=== PATIENT | female | born 1950 | race Two or more races ===

== ENCOUNTER 2016-06-24 21:32 | Emergency (ER) | payer OTHER, MEDICARE ==
[~2016-06-24] VITALS: Ht 160 cm; Wt 104.3 kg
[~2016-06-24 21:32] MED LIST: ATEN25TA; PIOG15TA3; SITA25TA; VALS40TA4
--- NOTE | 2016-06-24 22:13 | NUR ---
DR. MCNEIL IS AT THE BEDSIDE.
[2016-06-24] MEDS ORDERED: ONDANSETRON 4 MG TAB.RAPDIS ONE (22:22)
[2016-06-24] MEDS ORDERED: HYDROCODONE/APAP 5/325MG 1 EACH TABLET ONE (22:22)
[2016-06-24] MEDS: HYDROCODONE/APAP 5/325MG 1 EACH TABLET PO ONE (22:27)
[2016-06-24] MEDS: ONDANSETRON 4 MG TAB.RAPDIS SL ONE (22:27)
--- NOTE | 2016-06-24 22:47 | NUR ---
XRAY AT THE BEDSIDE
--- NOTE | 2016-06-24 23:51 | NUR ---
CALLED RADIOLOGY RE: READING THE XRAYS.
--- NOTE | 2016-06-25 00:15 | NUR ---
PT APPEARS TO BE RESTING COMFORTABLY. PT WAITING FOR A BOOT.
--- NOTE | 2016-06-25 01:30 | NUR ---
PT REC'D BOOT AND A COPY OF IMAGING ON DISK. PT'S SON IS DRIVING PT HOME. Patient discharged to home in stable condition. Written and verbal after care instructions given. Patient verbalizes understanding of instruction. PT WAS INSTRUCTED TO F/U WITH PMD IN 24 HOURS AND TO TAKE OTC TYLENOL FOR PAIN AND ICE AREA Q2 HRS. PT AMBULATED OUT WITH A SLOW STEADY GAIT. PT'S SON WAS MINIMALLY ASSISTING PT. PT USUALLY USES A WALKER AT HOME.
[2016-06-25 01:35] VITALS: BP 142/68
== END 2016-06-25 01:38 | disposition home or self-care (01) ==
LOC: ER 21:34
DX: S93.401A Sprain of unspecified ligament of right ankle, initial encounter (principal); E11.9 Type 2 diabetes mellitus without complications; I10 Essential (primary) hypertension; X58.XXXA Exposure to other specified factors, initial encounter; Y93.89 Activity, other specified; Y92.89 Other specified places as the place of occurrence of the external cause; Y99.9 Unspecified external cause status
CPT/HCPCS: 73590; 73610; 99284; A4606; Q0162; Z7610